=== PATIENT | male | born 1975 | race African-American/Black ===

== ENCOUNTER → 2016-08-18 | Outpatient (CLI) | payer MEDICARE, MEDICAID ==
[~2016-08-18] MED LIST: HYDR-2768 PO; IBUP600T26 PO; PRED20 PO
== END ==
LOC: HRSP 09:00
PROVIDERS: ATTEND Internal Medicine Sleep Medicine
DX: R06.89 Other abnormalities of breathing (principal)
CPT/HCPCS: 94620

== ENCOUNTER 2018-03-27 14:24 | Observation (INO) ==
--- NOTE | 2018-03-27 14:53 | ED ---
HPI General Chief Complaint: Chest Pain Stated Complaint: chest pain Time Seen by Provider: 03/27/18 14:33 Source: patient Mode of arrival: ambulatory Limitations: no limitations History of Present Illness HPI narrative: 43 y/o male presents while he was shopping today developing central chest pain. He went to his car and try to rest but it continued so he called the ambulance. They gave him aspirin and nitroglycerin and he stated that he started to feel better. He states he wears 2 L of oxygen all the time. He denies prior heart history. He states he wears oxygen due to his sarcoidosis and lung issues. He denies any increased use in his nebulizer treatments. He denies any other concurrent complaints. complaint: Reports chest pain STEMI Alert: No Onset (ago): hour(s) Duration: constant Quality: Reports tightness Pain radiation: Reports none Relieving factors: nitroglycerin Exacerbating factors: nothing Treatments prior to arrival chest pain: Reports aspirin and nitroglycerin Related Data Home Medications Medication Instructions Recorded Confirmed amlodipine [Norvasc] 10 mg PO DAILY 03/27/18 03/27/18 atorvastatin 20 mg PO HS 03/27/18 03/27/18 lisinopril 40 mg PO DAILY 03/27/18 03/27/18 prednisone 5 mg PO DAILY 03/27/18 03/27/18 Allergies Allergy/AdvReac Type Severity Reaction Status Date / Time No Known Allergies Allergy Verified 03/27/18 14:28 Review of Systems ROS: all other systems reviewed are negative [facility] Medical History Medical History HTN (hypertension) (Acute) High cholesterol (Acute) Sarcoidosis of lung (Acute) Surgical History Surgical History S/P lobectomy of lung (Acute) Social History Social History Smoking Status: Former smoker How Often Do You Have a Drink Containing Alcohol: Never Recent Travel in [facility] within the Last 8 Weeks: No Recent Out of Country Travel within the Last 8 Weeks: No Immunization History Tetanus Immunization: Unsure Exam Narrative Exam Narrative: GENERAL: 43 y/o male in no apparent distress SKIN: Focused skin assessment warm/dry. HEAD: Atraumatic. Normocephalic. EYES: Pupils equal and round. No scleral icterus. No injection or drainage. ENT: No nasal bleeding or discharge. Mucous membranes pink and moist. NECK: Trachea midline. No JVD. CARDIOVASCULAR: Regular rate and rhythm. No murmur appreciated. RESPIRATORY: No accessory muscle use. Clear to auscultation. Breath sounds equal bilaterally. GASTROINTESTINAL: Abdomen soft, non-tender, nondistended. MUSCULOSKELETAL: No obvious deformities. No clubbing. No cyanosis. No edema. NEUROLOGICAL: Awake. Motor grossly within normal limits. Normal speech. PSYCHIATRIC: Appropriate mood and affect; insight and judgment normal. Course Reevaluation(s) Reevaluation #1: ED workup no acute, agrees to chest pain center observation Initial Documented Vital Signs Temperature 98.8 F 03/27/18 14:42 Pulse Rate 91 H 03/27/18 14:42 Respiratory Rate 20 03/27/18 14:42 Blood Pressure 126/88 03/27/18 14:42 Pulse Oximetry 99 03/27/18 14:42 Last Documented Vital Signs Temperature 98.8 F 03/27/18 14:42 Pulse Rate 93 H 03/27/18 15:00 Respiratory Rate 16 03/27/18 15:00 Blood Pressure 126/88 03/27/18 15:00 Pulse Oximetry 98 03/27/18 15:00 Medical Decision Making MDM Narrative Medical decision making narrative: Patient clear to auscultation bilaterally with normal oxygen saturation. Pain is relieved by nitroglycerin and patient has risk factors for cardiac disease as well. Will check blood work, x-ray and dose with additional nitroglycerin and monitor Medical Screen Exam Complete: Yes Emergency Medical Condition: Yes Differential Diagnosis Differential Diagnosis: Atypical cardiac, musculoskeletal, PE Lab Data Lab results reviewed: Yes I reviewed the patient's lab results. Result diagrams: 03/27/18 14:45 03/27/18 14:45 Lab Results 03/27/18 03/27/18 03/27/18 Range/Units 14:45 14:45 14:45 WBC 7.2 (4.0-11.0) th/mm3 RBC 5.09 (4.50-5.90) mil/mm3 Hgb 13.7 (13.0-17.0) gm/dL Hct 40.3 (39.0-51.0) % MCV 79.2 L (80.0-100.0) fL MCH 27.0 (27.0-34.0) pg MCHC 34.0 (32.0-36.0) % RDW 13.9 (11.6-17.2) % Plt Count 220 (150-450) th/mm3 MPV 9.8 (7.0-11.0) fL Neut % (Auto) 70.4 H (16.0-70.0) % Lymph % (Auto) 19.0 (9.0-44.0) % [place] % (Auto) 7.5 (0.0-8.0) % Eos % (Auto) 2.6 (0.0-4.0) % Baso % (Auto) 0.5 (0.0-2.0) % Neut # (Auto) 5.1 (1.8-7.7) th/mm3 Lymph # (Auto) 1.4 (1.0-4.8) th/mm3 [place] # (Auto) 0.5 (0.0-0.9) th/mm3 Eos # (Auto) 0.2 (0.0-0.4) th/mm3 Baso # (Auto) 0.0 (0.0-0.2) th/mm3 WBC Differential . Differential Comment Auto diff final PT 10.6 (9.8-11.6) sec INR 1.0 Ratio APTT 26.8 (24.3-30.1) sec D-Dimer Quant (PE/DVT) 0.31 (0.00-0.50) mg/L FEU Sodium 142 (136-145) meq/L Potassium 3.2 L (3.5-5.1) meq/L Chloride 105 (98-107) meq/L Carbon Dioxide 25.0 (21.0-32.0) meq/L Anion Gap 12 (5-15) meq/L BUN 15 (7-18) mg/dL Creatinine 1.22 (0.60-1.30) mg/dL Estimated GFR 79 L (>89) mL/min Random Glucose 92 (74-106) mg/dL Calcium 8.6 (8.5-10.1) mg/dL Magnesium 1.8 (1.5-2.5) mg/dL Total Bilirubin 0.3 (0.2-1.0) mg/dL AST 21 (15-37) U/L ALT 32 (12-78) U/L Alkaline Phosphatase 124 H (45-117) U/L Total Creatine Kinase 100 (39-308) U/L Troponin I Less than 0.02 L (0.02-0.05) ng/mL Total Protein 8.2 (6.4-8.2) g/dL Albumin 3.5 (3.4-5.0) g/dL Imaging Data Attestation: I personally reviewed and interpreted this imaging study as follows : Radiologist's impression: Chest X-Ray 03/27/18 14:42 CONCLUSION: 1. Stable severe chronic interstitial lung disease without acute abnormality or significant change. Discharge Plan Discharge Disposition Patient Disposition: 30 Still Patient Discharge Details Diagnosis: Chest pain Physicians Team ED Provider: Carina Segovia Primary Care Provider: Primary Care Stephanie Werner Attending Provider: João Dhaliwal Discharge Interventions Interventions: Vital Signs Last Done: 03/27/18 14:42 Status ED Status: Admitted Observation Patient
[2018-03-27 15:05] LABS: Baso % (Auto) 0.5 % (0.0-2.0); Eos # (Auto) 0.2 th/mm3 (0.0-0.4); Eos % (Auto) 2.6 % (0.0-4.0); Hematocrit 40.3 % (39.0-51.0); Hemoglobin 13.7 gm/dL (13.0-17.0); Lymph # (Auto) 1.4 th/mm3 (1.0-4.8); Mean Corpuscular Volume 79.2 fL (80.0-100.0); Mean Platelet Volume 9.8 fL (7.0-11.0); Mono # (Auto) 0.5 th/mm3 (0.0-0.9); Mono % (Auto) 7.5 % (0.0-8.0); Neut # (Auto) 5.1 th/mm3 (1.8-7.7); Neut % (Auto) 70.4 % (16.0-70.0); Platelet Count 220 th/mm3 (150-450); Red Blood Count 5.09 mil/mm3 (4.50-5.90); Red Cell Distribution Width 13.9 % (11.6-17.2); White Blood Count 7.2 th/mm3 (4.0-11.0)
[2018-03-27 15:20] LABS: Activated Partial Thrombo Time 26.8 sec (24.3-30.1); D-Dimer 0.31 mg/L FEU (0.00-0.50); Prothrombin Time 10.6 sec (9.8-11.6)
--- NOTE | 2018-03-27 15:24 | XR ---
EXAM DATE: 03/27/2018 2:42 PM EDT AGE/SEX: 43 years / Male INDICATIONS: Chest Pain CLINICAL DATA: This is the patient's initial encounter. Patient reports that signs and symptoms have been present for 1 day and indicates a pain score of 5/10. MEDICAL/SURGICAL HISTORY: . Sarcoidosis None. COMPARISON: [place], CHEST PA & LAT, 03/30/2015. . FINDINGS: Redemonstration of diffuse interstitial lung disease without new focal pleural or parenchymal opaciti es. The cardiomediastinal contours are unremarkable. Osseous structures are intact. CONCLUSION: 1. Stable severe chronic interstitial lung disease without acute abnormality or significant change. Electronically signed by: Logan Barrett MD 03/27/2018 3:22 PM EDT
[2018-03-27 15:25] LABS: Albumin 3.5 g/dL (3.4-5.0); Anion Gap 12 meq/L (5-15); Aspartate Aminotransferase 21 U/L (15-37); Blood Urea Nitrogen 15 mg/dL (7-18); Calcium 8.6 mg/dL (8.5-10.1); Chloride 105 meq/L (98-107); Glomerular Filtration Rate 79 mL/min (>89); Glucose,Random 92 mg/dL (74-106); Magnesium 1.8 mg/dL (1.5-2.5); Potassium 3.2 meq/L (3.5-5.1); Sodium 142 meq/L (136-145)
[2018-03-27 15:31] LABS: Alanine Aminotransferase 32 U/L (12-78); Alkaline Phosphatase 124 U/L (45-117); Total Protein 8.2 g/dL (6.4-8.2)
[2018-03-27 15:36] LABS: Creatine Kinase 100 U/L (39-308)
[2018-03-27] MEDS ORDERED: Potassium Chloride 10 MEQ ER Capsule PO ONE (16:35)
--- NOTE | 2018-03-27 16:41 | P.HPCA ---
History of Present Illness Primary Care Physician: No Primary Care Physician Chief Complaint: Chest pain History of Present Illness: This is a 43-year-old male that presents to ED via [facility] with complaint of chest discomfort he has history of sarcoidosis, hypertension, hyperlipidemia. States that around 9:00 after awakening this morning he developed a dull discomfort in the left upper chest that lasted a few minutes. He states the area is tender however it is not as bad this time. He chronically has shortness of breath but feels that this was a little bit worse. Denies nausea or diaphoresis. He became concerned when the symptoms came back 2 more times. At that time he called 911. Just before they arrived it reoccurred. He was given several nitroglycerin and aspirin which states that may have helped a little bit but still pain lasted longer at about 20 minutes. States he has had a stress test but it was years ago. Denies any knowledge of heart disease. States he was diagnosed with sarcoidosis in 2012. He [address] Obrien and his PCP is Dr. Marks. Currently has no chest pain. Patient has history of sarcoidosis, hypertension, and hyperlipidemia. He quit smoking 8 years ago but prior that he smoked 1/3 pack of cigarettes daily for 6 years. Denies alcohol or illicit drugs. States his father age of 62 of a myocardial infarction - Diagnosis (1) Chest pain (2) Sarcoidosis (3) Hypertension (4) Hyperlipidemia (5) Hypokalemia Review of Systems General: Patient denies fevers, chills, and recent travel. HEENT: Patient denies headache, sore throat, difficulty swallowing. Cardiovascular: Has the chest discomfort as mentioned above. Denies sensation of heart beating rapidly or irregularly. No syncope. Denies diaphoresis per Respiratory: Chronic shortness of breath but felt as if it was a little worse today. Denies inspirational chest discomfort. Denies coughing wheezing or hemoptysis. GI: Patient denies nausea, vomiting, diarrhea, abdominal pain, bloody stools. Musculoskeletal: Patient denies joint pain or edema. Denies calf pain or edema. Neurovascular: Patient denies numbness, tingling, weakness in extremities. Denies headache. Endocrine: Denies polyuria and polydipsia. Hematologic: Denies easy bruising. Skin: Denies rash or itching. PMFSH - History History Provided By: Patient, Extension Service Advisor / EMT - Medical History Medical History: Medical History (Last Reviewed 03/27/18 @ 14:52 by Carina Segovia MD) HTN (hypertension) High cholesterol Sarcoidosis of lung - Surgical History Surgical History: Surgical History (Last Reviewed 03/27/18 @ 14:52 by Carina Segovia MD) S/P lobectomy of lung - Tobacco History Smoking Status: Former smoker - Alcohol History How Often Do You Have a Drink Containing Alcohol: Never - Travel History Recent Travel in the [place] Within the Last 8 Weeks: No Recent Travel Out of the Country Within the Last 8 Weeks: No - Immunization History Tetanus Immunization: Unsure Medications and Allergies Active Medications: Active Medications Potassium Chloride (Kcl) 10 meq PO ONCE ONE Stop: 03/27/18 16:36 Sodium Chloride (Ns Flush) 2 ml IV.FLUSH UNSCH PRN PRN Reason: FLUSH AFTER USING IV ACCESS Allergies Allergy/AdvReac Type Severity Reaction Status Date / Time No Known Allergies Allergy Verified 03/27/18 14:28 Home Medications Medication Instructions Recorded Confirmed Type albuterol sulfate 1.25 mg INHALATION QID PRN 03/27/18 03/27/18 History amlodipine [Norvasc] 10 mg PO DAILY 03/27/18 03/27/18 History atorvastatin 20 mg PO HS 03/27/18 03/27/18 History budesonide-formoterol [Symbicort] 2 puff INHALATION BID 03/27/18 03/27/18 History lisinopril 40 mg PO DAILY 03/27/18 03/27/18 History prednisone 5 mg PO DAILY 03/27/18 03/27/18 History Exam Vital signs: Vital Signs 03/27/18 14:42 03/27/18 15:00 Temperature 98.8 F Pulse Rate 90 93 H Respiratory Rate 20 16 Blood Pressure 126/88 126/88 Pulse Oximetry 99 98 Intake & Output 03/26/18 03/27/18 03/27/18 18:59 06:59 18:59 Weight 76.204 kg Narrative: GENERAL: This is a well-nourished, well-developed patient, in no apparent distress. Patient speaks in clear complete sentences. Patient is pleasant. HEENT: Head is atraumatic and normocephalic. Neck is supple without lymphadenopathy and trachea is midline. No JVD or carotid bruits. CARDIOVASCULAR: Regular rate and rhythm without murmurs, gallops, or rubs. RESPIRATORY: Clear to auscultation. Breath sounds equal bilaterally. No wheezes , rales, or rhonchi. Chest wall is tender. No use of accessory muscles. GASTROINTESTINAL: Abdomen is nontender, nondistended. Abdomen soft. No obvious pulsatile mass or bruit. No CVA tenderness. Strong femoral pulses bilaterally. Normal bowel sounds in all quadrants. MUSCULOSKELETAL: Patient is moving upper and lower extremities freely. No calf tenderness or edema, no Homans sign. Strong pulses in upper and lower extremities. NEUROLOGICAL: Patient is alert and oriented. Cranial nerves 2-12 are grossly intact. No focal deficits and speech is clear. SKIN: No rash and turgor is normal. Results 03/27/18 14:45 03/27/18 14:45 Cardiac Enzymes 03/27/18 Range/Units 14:45 AST 21 (15-37) U/L Troponin I Less than 0.02 L (0.02-0.05) ng/mL Coagulation 03/27/18 Range/Units 14:45 PT 10.6 (9.8-11.6) sec APTT 26.8 (24.3-30.1) sec CBC 03/27/18 Range/Units 14:45 WBC 7.2 (4.0-11.0) th/mm3 RBC 5.09 (4.50-5.90) mil/mm3 Hgb 13.7 (13.0-17.0) gm/dL Hct 40.3 (39.0-51.0) % Plt Count 220 (150-450) th/mm3 Neut # (Auto) 5.1 (1.8-7.7) th/mm3 Lymph # (Auto) 1.4 (1.0-4.8) th/mm3 [place] # (Auto) 0.5 (0.0-0.9) th/mm3 Eos # (Auto) 0.2 (0.0-0.4) th/mm3 Baso # (Auto) 0.0 (0.0-0.2) th/mm3 Comprehensive Metabolic Panel 03/27/18 Range/Units 14:45 Sodium 142 (136-145) meq/L Potassium 3.2 L (3.5-5.1) meq/L Chloride 105 (98-107) meq/L Carbon Dioxide 25.0 (21.0-32.0) meq/L BUN 15 (7-18) mg/dL Creatinine 1.22 (0.60-1.30) mg/dL Calcium 8.6 (8.5-10.1) mg/dL AST 21 (15-37) U/L ALT 32 (12-78) U/L Alkaline Phosphatase 124 H (45-117) U/L Total Protein 8.2 (6.4-8.2) g/dL Albumin 3.5 (3.4-5.0) g/dL Intake and Output 03/27/18 03/27/18 03/27/18 06:59 14:59 22:59 Other: Weight 76.204 kg Patient Weight 03/28/18 06:59 Weight 76.204 kg - Imaging and Cardiology Imaging: Impressions Chest X-Ray 03/27/18 14:42 CONCLUSION: 1. Stable severe chronic interstitial lung disease without acute abnormality or significant change. EKG interpretations - EKG EKG shows: sinus rhythm (Initial EKG is sinus rhythm without significant ST segment depressions or elevations.) Caprini VTE Risk Assessment Caprini VTE Risk Assessment: No/Low Risk (score <= 1) Caprini Risk Assessment Model: Point Value = 1 Point Value = 2 Point Value = 3 Point Value = 5 Age 41-60 Minor surgery BMI > 25 kg/m2 Swollen legs Varicose veins or History of unexplained or recurrent spontaneous Oral contraceptives or hormone replacement Sepsis (< 1 month) Serious lung disease, including pneumonia (< 1 month) Abnormal pulmonary function Acute myocardial infarction Congestive heart failure (< 1 month) History of inflammatory bowel disease Medical patient at bed rest Age 61-74 Arthroscopic surgery Major open surgery (> 45 min) Laparoscopic surgery (> 45 min) Malignancy Confined to bed (> 72 hours) Immobilizing plaster cast Central venous access Age >= 75 History of VTE Family history of VTE Factor V Leiden Prothrombin 44120P Lupus anticoagulant Anticardiolipin antibodies Elevated serum homocysteine Heparin-induced thrombocytopenia Other congenital or acquired thrombophilia Stroke (< 1 month) Elective arthroplasty Hip, pelvis, or leg fracture Acute spinal cord injury (< 1 month) Prophylaxis Regimen: Total Risk Factor Score Risk Level Prophylaxis Regimen 0-1 Low Early ambulation 2 Moderate Order ONE of the following: *Sequential Compression Device (SCD) *Heparin 5000 units SQ BID 3-4 Higher Order ONE of the following medications: *Heparin 5000 units SQ TID *Enoxaparin/Lovenox 40 mg SQ daily (WT < 150 kg, CrCl > 30 mL/min) *Enoxaparin/Lovenox 30 mg SQ daily (WT < 150 kg, CrCl > 10-29 mL/min) *Enoxaparin/Lovenox 30 mg SQ BID (WT < 150 kg, CrCl > 30 mL/min) AND/OR *Sequential Compression Device (SCD) 5 or more Highest Order ONE of the following medications: *Heparin 5000 units SQ TID (Preferred with Epidurals) *Enoxaparin/Lovenox 40 mg SQ daily (WT < 150 kg, CrCl > 30 mL/min) *Enoxaparin/Lovenox 30 mg SQ daily (WT < 150 kg, CrCl > 10-29 mL/min) *Enoxaparin/Lovenox 30 mg SQ BID (WT < 150 kg, CrCl > 30 mL/min) AND *Sequential Compression Device (SCD) Assessment and Plan - Assessment (1) Chest pain Code(s): R07.9 - Chest pain, unspecified Status: Acute (2) Sarcoidosis Code(s): D86.9 - Sarcoidosis, unspecified Status: Acute (3) Hypertension Code(s): I10 - Essential (primary) hypertension Status: Acute (4) Hyperlipidemia Code(s): E78.5 - Hyperlipidemia, unspecified Status: Acute (5) Hypokalemia Code(s): E87.6 - Hypokalemia Status: Acute - Plan * Chest pain: Patient will continue to have serial cardiac enzymes and EKGs for ruling out purposes. He will be seen by Dr. Dhaliwal of cardiology in the chest pain center in the morning. He will have a Lexiscan if he rules out. He will be discharged home if the stress test is nonischemic with instructions to follow -up with PCP and his equipment installer. Return to ED for interval issues. * History of sarcoidosis: We will have DuoNeb's as needed. Resume medication at discharge. * Hypertension: Continue medication. * Hyperlipidemia: Continue medication. * Hypokalemia: Patient has been given potassium supplementation. Patient is stable at this time. He is agreeable to this plan. (1) Chest pain Qualifiers: Chest pain type: unspecified Qualified Code(s): R07.9 - Chest pain, unspecified
[2018-03-27] MEDS ORDERED: Acetaminophen 500 MG Tablet PO PRN (16:47)
[2018-03-27] MEDS ORDERED: ALPRAZolam 0.25 MG Tablet PO PRN (16:48)
[2018-03-27 18:19] LABS: Creatine Kinase 96 U/L (39-308)
[2018-03-27 20:55] LABS: Creatine Kinase 103 U/L (39-308)
[2018-03-28 08:36] VITALS: BP 125/76; RESP 16; TEMP 99.7; O2SAT 99
[2018-03-28] MEDS: Lisinopril 20 MG Tablet PO SCH ×2 (08:47→11:47)
[2018-03-28] MEDS ORDERED: predniSONE 5 MG Tablet PO SCH (09:00)
[2018-03-28] MEDS ORDERED: Aspirin 325 MG Tablet PO SCH (09:00)
[2018-03-28] MEDS ORDERED: amLODIPine 10 MG Tablet PO SCH (09:00)
[2018-03-28] MEDS ORDERED: Regadenoson Inj 0.4 MG/5 ML Syringe IV.PUSH ONE (09:25)
--- NOTE | 2018-03-28 11:03 | NM ---
EXAM DATE: 03/28/2018 9:13 AM EDT AGE/SEX: 43 years / Male INDICATIONS:Angina. . Left upper chest discomfort. CLINICAL DATA: This is the patient's initial encounter. Patient reports that signs and symptoms have been present for 1 day and indicates a pain score of 2/10. MEDICAL/SURGICAL HISTORY: Hypercholesterolemia. Hypertension. Sarcoidosis of lung. Lobectomy. COMPARISON: No prior exams available for comparison. DOSE: 8.2 mCi Tc 99m Myoview at rest 27.3 mCi [id number] at stress 0.4 mg Lexiscan STRESS SYMPTOMS: Dyspnea. EJECTION FRACTION: >70 % TECHNIQUE: The patient underwent pharmacologic stress with infusion of prescribed dose. Continuous ECG tracing was monitored during stress. Gated SPECT imaging was performed after stress and conventi onal SPECT imaging was performed at rest. The examination was performed on a SPECT/CT scanner, both attenuation and non-corrected datasets were reviewed. FINDINGS: Distribution: The maximum perfused segment at stress is in the lateral wall. Perfusion Study: The pattern of perfusion at stress is within normal limits. Gated Study: There are intact wall motion and wall thickening without hypokinetic or dyskinetic segm ents. The ejection fraction is calculated at >70%. RISK CATEGORY: Low (<1% Annual Motality Rate) CONCLUSION: 1. No evidence of fixed or reversible defect. Normal wall motion and normal ejection fraction. Electronically signed by: Carmita De Paz MD 03/28/2018 11:01 AM EDT
[2018-03-28 13:05] VITALS: PULSE 71
--- NOTE | 2018-03-28 15:06 | ECG ---
Date Performed: 03/27/2018 Time Performed: 20:47:54 PTAGE: 43 years EKG: Sinus rhythm POSSIBLE RIGHT VENTRICULAR CONDUCTION DELAY Poor R wave progression ABNORMAL ECG PREVIOUS TRACING : 03/27/2018 17.21 Since previous tracing, no significant change noted DOCTOR: João Dhaliwal Interpretating Date/Time 03/28/2018 15:05:12
--- NOTE | 2018-03-28 15:11 | ECG ---
Date Performed: 03/27/2018 Time Performed: 17:21:38 PTAGE: 43 years EKG: Sinus rhythm POSSIBLE RIGHT VENTRICULAR CONDUCTION DELAY Poor R wave progression ABNORMAL ECG PREVIOUS TRACING : 03/27/2018 14.35 Since previous tracing, no significant change noted DOCTOR: João Dhaliwal Interpretating Date/Time 03/28/2018 15:09:20
--- NOTE | 2018-03-28 15:11 | ECG ---
Date Performed: 03/27/2018 Time Performed: 14:35:33 PTAGE: 43 years EKG: Sinus rhythm POSSIBLE RIGHT VENTRICULAR CONDUCTION DELAY Poor R wave progression ABNORMAL ECG INTERPRETATION BASE D ON A DEFAULT AGE OF 41 YEARS NO PREVIOUS TRACING DOCTOR: João Dhaliwal Interpretating Date/Time 03/28/2018 15:11:22
--- NOTE | 2018-03-29 10:34 | TR ---
Date Performed: 03/28/2018 Time Performed: 09:48:06 DOCTOR: João Dhaliwal DRUG LIST: CLINICAL HISTORY: REASON FOR TEST: Angina REASON FOR ENDING: OBSERVATION: CONCLUSION: COMMENTS:
== END 2018-03-28 13:07 | disposition home or self-care (01) ==
LOC: NEDA 14:24 → NEPC 14:24 → NEPHCDU 17:26